=== PATIENT | male | born 1970 ===

== ENCOUNTER → 2024-01-14 06:34 | Day surgery (SDC) | payer OTHER, SELFPAY | LOC: GI 06:34 | PROVIDERS: ATTENDING PHYSICIAN Internal Medicine Gastroenterology | DX: Z12.11 Encounter for screening for malignant neoplasm of colon (principal); K64.8 Other hemorrhoids; K62.89 Other specified diseases of anus and rectum; K63.5 Polyp of colon | CPT/HCPCS: 45380; 88305 ==